=== PATIENT | female | born 1975 | race Caucasian/White ===

== ENCOUNTER 2018-08-16 10:38 | Day surgery (SDC) | payer MEDICAID ==
[~2018-08-16] VITALS: Ht 149.9 cm; Wt 105.0 kg
[2018-08-16] MEDS ORDERED: SODIUM CHLORIDE 0.9% 1,000 ML IV ONE ×2 (10:50→11:00)
== END 2018-08-16 14:25 | disposition home or self-care (01) ==
LOC: SURGERY 10:38
PROVIDERS: ATTEND Internal Medicine Gastroenterology
DX: K29.50 Unspecified chronic gastritis without bleeding (principal); B96.81 Helicobacter pylori [H. pylori] as the cause of diseases classified elsewhere; E66.01 Morbid (severe) obesity due to excess calories; F10.21 Alcohol dependence, in remission; Z87.448 Personal history of other diseases of urinary system; Z87.19 Personal history of other diseases of the digestive system; Z68.42 Body mass index [BMI] 45.0-49.9, adult; Z81.1 Family history of alcohol abuse and dependence
CPT/HCPCS: 43239; 88305; 88312; C1769; J7030